=== PATIENT | male | born 1995 | race Native Hawaiian/Other Pacific Islander ===

== ENCOUNTER 2019-04-10 08:47 | Emergency (ER) | payer BC ==
[2019-04-10 09:00] VITALS: BP 130/82
--- NOTE | 2019-04-10 09:13 | UC ---
Back Pain HPI - HPI Summary HPI Summary: Onset 2 days ago of right flank pain which has been progressively worse x 2 days , with inability to sleep after 2 this morning. Presents with severe pain, diaphorises, emesis x1 after taking acetaminophen this morning. Has 1+ hematuria. No personal or FH of renal stones. Denies any strain or injury. 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 Recently treated for cogh and congestion with a prednisone taper and azithromycin. 12 day prednisone taper beginning 04/02/19 - History of Current Complaint Chief Complaint: UCBackPain Stated Complaint: BACK AND SIDE PAIN Time Seen by Provider: 04/10/19 09:02 Hx Obtained From: Patient Onset/Duration: Gradual Onset, Lasting Days - 2, Worse Since - 2am Timing: Constant Severity Initially: Moderate Severity Currently: Severe Pain Intensity: 10 Back Pain: Is Discrete @ - right flank, Radiates To - abdomen Character: Sharp, Aching Aggravating Factor(s): Movement, Walking Alleviating Factor(s): Nothing Associated Signs And Symptoms: Positive: Abdominal Pain - feels abdomen is bloated. Passed a large stool last evening, overall normal - Allergies/Home Medications Allergies/Adverse Reactions: Allergies Allergy/AdvReac Type Severity Reaction Status Date / Time No Known Allergies Allergy Verified 04/10/19 08:55 PMH/Surg Hx/FS Hx/Imm Hx Previously Healthy: Yes - overweight - Surgical History Surgical History: Yes Surgery Procedure, Year, and Place: L ankle surgery as a child - Family History Known Family History: Positive: Diabetes - father - Social History Occupation: Employed Full-time Lives: With Family Alcohol Use: Occasionally Substance Use Type: None Smoking Status (MU): Light Every Day Tobacco Smoker Amount Used/How Often: 1/4 PPD Review of Systems All Other Systems Reviewed And Are Negative: Yes Constitutional: Positive: Fatigue Respiratory: Positive: Other - improved cough and shortness of breath Genitourinary: Positive: Other - severe right flank pain. Negative: Dysuria, Hematuria, Frequency, Urgency Musculoskeletal: Positive: Myalgia Neurological: Positive: Negative Psychological: Positive: Negative Is Patient Immunocompromised?: No Physical Exam Triage Information Reviewed: Yes Appearance: Ill-Appearing, Pain Distress - severe Vital Signs: Initial Vital Signs Temp 97.3 F 04/10/19 08:57 Pulse 79 04/10/19 08:57 Resp 19 04/10/19 08:57 BP 130/82 04/10/19 08:57 Pulse Ox 96 04/10/19 08:57 ENT: Positive: Pharynx normal Neck: Positive: Supple, Nontender, No Lymphadenopathy Respiratory: Positive: Lungs clear, Normal breath sounds Cardiovascular: Positive: RRR, No Murmur Abdomen Description: Positive: Soft, CVA Tenderness (R), Distended. Negative: Guarding, Hepatomegaly, Splenomegaly Musculoskeletal: Positive: ROM Intact Neurological Exam: Normal Psychological Exam: Normal Skin Exam: Normal Diagnostics - Laboratory Lab Results: UA with 1+ blood - Radiology No standard instances Radiology Interpretation Completed By: Radiologist - CT shows 2 mm stone in the right uterer with right moderate hydronephrosis. Back Pain Course/Dx - Course Course Of Treatment: Increase fluids, pain control, strain urine. Urology referral Reviewed management with Dr. Glover, who reviewed the CT . Anticipates passage of stone with time, and unlikely need for intervention. Will follow up with urology in 2 days. - Differential Dx/Diagnosis Differential Diagnosis/HQI/PQRI: Herniated Disc, Renal Colic, Strain, Sprain Provider Diagnosis: Right renal stone Discharge ED - Sign-Out/Discharge Documenting (check all that apply): Patient Departure All imaging exams completed and their final reports reviewed: Yes - Discharge Plan Condition: Stable Disposition: HOME Prescriptions: Hydrocodone/Acetaminophen [Hydrocodone/Acetaminophen 5-325 mg] 2 tab PO Q6H PRN #16 tab MDD 8 PRN Reason: Pain - Moderate Patient Education Materials: Renal Colic (ED), How to Strain Your Urine (ED) Forms: *Work Release Referrals: No Primary Care Phys,NOPCP [Primary Care Provider] - Elkin Glover MD [Medical Doctor] - Additional Instructions: Please call [facility] to arrange a visit in 1 to 2 days. The kidney stone should pass in 1 to 2 days. Follow up with [facility] in s days. If you develop worsening pain or fever , please return to the emergency room. Use hydrocodone as needed for control of pain. You have a coincidental finding of fatty liver on the CT. As we discussed, this could be due to the quality of your diet or suggest a tendency to diabetes. I suggest an appointment with a primary care doctor for evaluation of this. - Billing Disposition and Condition Condition: STABLE Disposition: Home
[2019-04-10] MEDS: Ondansetron ODT TAB* 4 MG PO ONE (09:16)
[2019-04-10] MEDS: Ketorolac *IM* INJ* 60 MG/2 ML VIAL IM ONE (09:16)
== END 2019-04-10 10:50 | disposition home or self-care (01) ==
LOC: UCEAST 08:47
DX: N20.0 Calculus of kidney (principal); F17.210 Nicotine dependence, cigarettes, uncomplicated
CPT/HCPCS: 74176; 81003; 87086; 96372; 99212; A9270-GY; G0463; J1885

== ENCOUNTER 2019-04-30 19:36 | Emergency (ER) | payer BC ==
[2019-04-30] MEDS ORDERED: Albuterol/Ipratropium NEB.SOL* Albuterol 2.5 MG/Ipratropium 0.5 MG 3 ML INH ONE (22:24)
[2019-04-30] MEDS ORDERED: predniSONE TAB* 20 MG PO ONE (22:24)
--- NOTE | 2019-04-30 22:46 | ED ---
Respiratory - HPI Summary HPI Summary: 23-year-old male presents with cough for the past couple months. He states that he has been getting more short of breath. has been using inhaler which has been helping. no history asthma or COPD. Is a smoker. Does not vape. States he did have 1 episode of hemoptysis. Was just trace blood. Denies abdominal pain. No sore throat. Admits to some sinus congestion. No fevers. - History of Current Complaint Chief Complaint: EDShortnessOfBreath Stated Complaint: DIFF BREATHING PER PT Time Seen by Provider: 04/30/19 22:10 Pain Intensity: 0 Sputum Amount: None Sputum Color: Clear, Yellow - Allergy/Home Medications Allergies/Adverse Reactions: Allergies Allergy/AdvReac Type Severity Reaction Status Date / Time No Known Allergies Allergy Verified 04/10/19 08:55 PMH/Surg Hx/FS Hx/Imm Hx Endocrine/Hematology History: Denies: Hx Anticoagulant Therapy Respiratory History: Denies: Hx Asthma, Hx Chronic Obstructive Pulmonary Disease (COPD) - Surgical History Surgery Procedure, Year, and Place: L ankle surgery as a child Infectious Disease History: No Infectious Disease History: Denies: Traveled Outside the [place] in Last 30 Days - Family History Known Family History: Positive: Diabetes - father, Non-Contributory - Social History Alcohol Use: Occasionally Substance Use Type: Reports: None Smoking Status (MU): Light Every Day Tobacco Smoker Amount Used/How Often: 1/4 PPD Review of Systems Negative: Fever Negative: Chest Pain Positive: Shortness Of Breath, Cough All Other Systems Reviewed And Are Negative: Yes Physical Exam Triage Information Reviewed: Yes Vital Signs On Initial Exam: Initial Vitals Temp Pulse Resp BP Pulse Ox 98.5 F 95 18 141/91 97 04/30/19 19:45 04/30/19 19:45 04/30/19 19:45 04/30/19 19:45 04/30/19 19:45 Vital Signs Reviewed: Yes Appearance: Positive: Well-Appearing Skin: Positive: Warm, Dry Head/Face: Positive: Normal Head/Face Inspection Eyes: Positive: Normal, EOMI, EMELY ENT: Positive: Normal ENT inspection, Pharynx normal, TMs normal Respiratory/Lung Sounds: Positive: Breath Sounds Present, Wheezes Cardiovascular: Positive: Normal, RRR Abdomen Description: Positive: Nontender, Soft Bowel Sounds: Positive: Present Musculoskeletal: Positive: Normal Neurological: Positive: Normal Psychiatric: Positive: Normal Diagnostics - Vital Signs Vital Signs Temp Pulse Resp BP Pulse Ox 04/30/19 22:36 94 18 100 04/30/19 22:10 16 04/30/19 21:57 97.9 F 97 18 128/90 96 04/30/19 19:45 98.5 F 95 18 141/91 97 - Laboratory Lab Statement: Any lab studies that have been ordered have been reviewed, and results considered in the medical decision making process. - Radiology chest Radiology Interpretation Completed By: ED Physician Summary of Radiographic Findings: no pneumonia Re-Evaluation - Re-Evaluation First Eval Re-Evaluation Time: 23:06 Change: Improved Comment: feeling better, lungs CTA Disposition - Course Course Of Treatment: 23-year-old male presents with cough for the past couple months. He states that he has been getting more short of breath. has been using inhaler which has been helping. no history asthma or COPD. Is a smoker. Does not vape. States he did have 1 episode of hemoptysis. Was just trace blood. Denies abdominal pain. No sore throat. Admits to some sinus congestion. No fevers. Some mild wheezing noted. Chest x-ray Normal. Gave breathing treatment with improvement. We'll prescribe inhaler and prednisone. Told to follow-up with primary to get PFT testing. Patient understands and agrees with plan. - Differential Dx - Cardiopulmonary Differential Diagnoses - Cardiopulmonary: Asthma, Bronchitis, Lower Resp Infection - Diagnoses Provider Diagnoses: Bronchitis Discharge ED - Sign-Out/Discharge Documenting (check all that apply): Patient Departure Patient Received Moderate/Deep Sedation with Procedure: No - Discharge Plan Condition: Good Disposition: HOME Prescriptions: Albuterol HFA INHALER* [Ventolin HFA Inhaler*] 1 puff INH Q6H PRN #1 mdi PRN Reason: Sob/Wheezing Benzonatate CAP* [Tessalon 100 MG CAP*] 100 mg PO TID PRN #21 cap PRN Reason: Cough predniSONE TAB* [Deltasone TAB*] 50 mg PO DAILY #5 tab Patient Education Materials: Acute Bronchitis (ED) Referrals: [facility] [Outside] [facility] [Outside] Additional Instructions: Use Tessalon three times a day for cough Use inhaler one puff every 4 hours for cough as needed take prednisone once a day for 5 days Use saline in the nose Establish care with primary care physician Return to ED if develop any new or worsening symptoms - Billing Disposition and Condition Condition: GOOD Disposition: Home
[2019-04-30] MEDS ORDERED: A lbuterol Hfa (PREPAK) 1 MDI - ED TAKE HOME DISPENSING ONLY INHH ONE (23:00)
[2019-04-30 23:23] VITALS: BP 116/78
== END 2019-04-30 23:10 | disposition home or self-care (01) ==
LOC: ED 19:36
DX: J40 Bronchitis, not specified as acute or chronic (principal); F17.200 Nicotine dependence, unspecified, uncomplicated
CPT/HCPCS: 71046; 99282; A9270-GY; J7512